=== PATIENT | female | born 1980 ===

== ENCOUNTER 2017-03-01 12:08 | Emergency (ER) | payer OTHER ==
[2017-03-01] MEDS ORDERED: Apap-Butalbital-Caffeine 325-50-40mg Tab PO STA (12:58)
[2017-03-01] MEDS ORDERED: Apap-Butalbital-Caffeine 325-50-40mg Tab ONE (13:11)
--- NOTE | 2017-03-01 13:55 | C.PDOC ---
History Of Present Illness 36 y/o female presents to the ED with complaints of left sided headache x2 days. Pt states she suffers from occasional headaches, and admits currently symptoms feel similar to previous headaches. She denies falls/injuries, fever, visual changes, neck pain, dizziness, nausea, vomiting, extremity weakness, sensory changes. Pt took motrin yesterday without relief. Time Seen by Provider: 03/01/17 12:43 Chief Complaint (Nursing): Headache History Per: Patient History/Exam Limitations: no limitations Onset/Duration Of Symptoms: Days Current Symptoms Are (Timing): Still Present Severity: Moderate Quality: "Pain" Preceeding Symptoms: Known Migraine Symptoms Past Medical History Reviewed: Historical Data, Nursing Documentation, Vital Signs Vital Signs: Last Vital Signs Temp 98 F 03/01/17 14:10 Pulse 64 03/01/17 14:10 Resp 14 03/01/17 14:10 BP 145/94 H 03/01/17 14:10 Pulse Ox 100 03/01/17 14:10 - Medical History PMH: No Chronic Diseases Family History: States: No Known Family Hx - Social History Hx Alcohol Use: Yes Hx Substance Use: No Review Of Systems Except As Marked, All Systems Reviewed And Found Negative. Constitutional: Negative for: Fever, Chills Eyes: Negative for: Vision Change Cardiovascular: Negative for: Chest Pain, Palpitations Respiratory: Negative for: Cough, Shortness of Breath Gastrointestinal: Negative for: Nausea, Vomiting Musculoskeletal: Negative for: Neck Pain Neurological: Positive for: Headache. Negative for: Dizziness Physical Exam - Physical Exam Appears: Well, Non-toxic, In Acute Distress (mild pain) Skin: Warm, Dry, No Rash Head: Atraumatic, Normacephalic Eye(s): bilateral: Normal Inspection, PERRL, EOMI Oral Mucosa: Moist Neck: Normal, Normal ROM, No Midline Cervical Tenderness, No Paracervical Tenderness, No Step Off Deformity, Supple Chest: Symmetrical Cardiovascular: Rhythm Regular Respiratory: Normal Breath Sounds, No Rales, No Rhonchi, No Wheezing Extremity: Bilateral: Atraumatic Neurological/Psych: Oriented x3, Normal Speech, Normal Cognition, Normal Cranial Nerves, No Cerebellar Signs, Normal Motor, Normal Sensation ED Course And Treatment O2 Sat by Pulse Oximetry: 99 (room air) Pulse Ox Interpretation: Normal Progress Note: Patient given PO Fiorecet in ED. Reevaluation Time: 14:15 Reassessment Condition: Improved (Patient reassessed, headache has resolved and she states she feels much better. She was given Rx for Fiorecet, and instructed to follow up with PMD/clinic in 1-2 days. She understands she should return to ED if symptoms return/worsen.) Disposition Counseled Patient/Family Regarding: Studies Performed, Diagnosis, Need For Followup, Rx Given - Disposition Referrals: [facility] [Outside] Disposition: HOME/ ROUTINE Disposition Time: 14:20 Condition: STABLE Additional Instructions: SEGUIMIENTO CON MOORE DOCTOR / CLNICA EN 1-2 FREITAS USE EL MEDICAMENTO QUE SE NECESITA PARA DOLOR DE BEVERLEY DEVUELVA A LA GAURAV DE EMERGENCIA SI LOS SNTOMAS EMPEORARAN Prescriptions: Acetaminophen/Butalbital/Caf [Fioricet] 1 tab PO TID PRN #20 tab PRN Reason: Headache Instructions: Acute Headache (ED) Print Language: KYRGYZ - POA Present On Arrival: None - Clinical Impression Clinical Impression: Headache - Scribe Statement The provider has reviewed the documentation as recorded by the Dmitryibilia Gutierrez Provider Attestation: All medical record entries made by the Scribe were at my direction and personally dictated by me. I have reviewed the chart and agree that the record accurately reflects my personal performance of the history, physical exam, medical decision making, and the department course for this patient. I have also personally directed, reviewed, and agree with the discharge instructions and disposition.
[2017-03-01 14:15] VITALS: BP 145/94; PULSE 64; RESP 14; TEMP 98
[2017-03-05 16:15] VITALS: O2SAT 99
== END 2017-03-01 14:25 | disposition home or self-care (01) ==
LOC: C.ER 12:08
DX: R51 Headache (principal)

== ENCOUNTER 2017-06-13 16:51 | Emergency (ER) | payer OTHER ==
[2017-06-13 16:56] VITALS: RESP 18
[2017-06-13] MEDS ORDERED: Sodium Chloride 0.9% 1,000 ML IV ONE (17:30)
--- NOTE | 2017-06-13 17:37 | C.PDOC ---
History Of Present Illness <Mandi Casas - Last Filed: 06/13/17 19:10> <Kimberlee Bishop - Last Filed: 06/13/17 21:04> 37 year old female with no significant past medical history presents to the ED with complaints of right sided abdominal pain that radiates to the right back for two days with associated nausea. Patient notes she had a fever beginning yesterday and throat pain. She reports decreased appetite today and denies cough , shortness of breath, dysuria, nausea, vomiting, GI bleeding, and chest pain. (Mandi Casas) History Per: Patient, Family History/Exam Limitations: no limitations Onset/Duration Of Symptoms: Days (4 days ) Current Symptoms Are (Timing): Still Present Location Of Pain/Discomfort: RUQ, RLQ Radiation Of Pain To:: Back (right sided ) Quality Of Discomfort: "Pain" Associated Symptoms: Fever, Nausea, Vomiting, Diarrhea, Back Pain. denies: Chills Exacerbating Factors: None Alleviating Factors: None Recent travel outside of the [place]: No Abnormal Vaginal Bleeding: No <Mandi Casas - Last Filed: 06/13/17 19:10> <Kimberlee Bishop - Last Filed: 06/13/17 21:04> Time Seen by Provider: 06/13/17 17:04 Chief Complaint (Nursing): Abdominal Pain Past Medical History Reviewed: Historical Data, Nursing Documentation, Vital Signs Family History: States: Unknown Family Hx - Social History Hx Alcohol Use: No Hx Substance Use: No - Immunization History Hx Tetanus Toxoid Vaccination: No Hx Influenza Vaccination: No Hx Pneumococcal Vaccination: No <Mandi Casas - Last Filed: 06/13/17 19:10> Vital Signs: Last Vital Signs Temp 98.1 F 06/13/17 19:52 Pulse 92 H 06/13/17 19:52 Resp 18 06/13/17 19:52 BP 144/91 H 06/13/17 19:52 Pulse Ox 99 06/13/17 19:52 Review Of Systems Constitutional: Positive for: Fever. Negative for: Chills ENT: Positive for: Throat Pain Cardiovascular: Negative for: Chest Pain Respiratory: Negative for: Cough, Shortness of Breath Gastrointestinal: Positive for: Nausea, Vomiting, Abdominal Pain, Diarrhea Musculoskeletal: Positive for: Back Pain Neurological: Negative for: Weakness, Numbness <Mandi Casas - Last Filed: 06/13/17 19:10> Physical Exam - Physical Exam Appears: Non-toxic, No Acute Distress Skin: Warm, Dry Head: Atraumatic Eye(s): bilateral: Normal Inspection, PERRL, EOMI Ear(s): Bilateral: Normal Oral Mucosa: Moist Throat: Erythema Neck: Supple Lymphatic: Adenopathy (right sided anterior cervical adenopathy ) Chest: Symmetrical, No Deformity Cardiovascular: Rhythm Regular, No Murmur Respiratory: No Rales, No Rhonchi, No Wheezing, Other (clear to auscultation bilaterally ) Gastrointestinal/Abdominal: Soft, Tenderness (positive RUQ tenderness), No Distention, No Guarding, No Rebound, Other (postive Scott's sign ) Back: No CVA Tenderness Extremity: Normal ROM, No Tenderness Neurological/Psych: Oriented x3 <Mandi Casas - Last Filed: 06/13/17 19:10> ED Course And Treatment - Laboratory Results Result Diagrams: 06/13/17 17:54 06/13/17 17:54 O2 Sat by Pulse Oximetry: 98 (RA) Progress Note: Labs, abdomen US, and blood work was ordered. Patient was given Pepcid, Toradol, Zofran, and IV fluids. <Mandi Casas - Last Filed: 06/13/17 19:10> - Laboratory Results Result Diagrams: 06/13/17 17:54 06/13/17 17:54 Pulse Ox Interpretation: Normal Reevaluation Time: 21:04 Reassessment Condition: Improved <Kimberlee Bishop - Last Filed: 06/13/17 21:04> Disposition - Disposition Disposition Time: 19:10 <Mandi Casas - Last Filed: 06/13/17 19:10> Counseled Patient/Family Regarding: Studies Performed, Diagnosis, Need For Followup, Rx Given <Kimberlee Bishop - Last Filed: 06/13/17 21:04> - Disposition Referrals: [facility] [Outside] [facility] [Outside] Disposition: HOME/ ROUTINE Condition: FAIR Prescriptions: Metronidazole [Flagyl] 500 mg PO TID #21 tablet Polyethylene Glycol 3350 [Miralax] 17 gm PO DAILY #270 ml Instructions: Abdominal Pain (ED), Gas and Bloating (ED), Constipation (DC), Ovarian Cyst (ED) Forms: [employer] (Spanish) Print Language: WELSH - Clinical Impression Clinical Impression: Abdominal pain, Constipation, Ovarian cyst - PA / [employer]ERTER / Resident Statement MD/DO has reviewed & agrees with the documentation as recorded. - Scribe Statement The provider has reviewed the documentation as recorded by the Scribe <Mandi Casas - Last Filed: 06/13/17 19:10> <Kimberlee Bishop - Last Filed: 06/13/17 21:04> - Scribe Statement Fabby Mobley All medical record entries made by the Scribe were at my direction and personally dictated by me. I have reviewed the chart and agree that the record accurately reflects my personal performance of the history, physical exam, medical decision making, and the department course for this patient. I have also personally directed, reviewed, and agree with the discharge instructions and disposition. (Mandi Casas) Physician Patient Turnover Patient Signed Over To: Kimberlee Bishop Handoff Comments: Pending US <Mandi Casas - Last Filed: 06/13/17 19:10>
[2017-06-13] MEDS ORDERED: Sodium Chloride 0.9% 1,000 ML ONE (17:45)
[2017-06-13 17:58] LABS: BASO # 0.1 K/uL (0.0-0.2); BASO % 0.5 % (0.0-2.0); EOS # 0.3 K/uL (0.0-0.7); EOS % 1.5 % (0.0-4.0); LYMPH # 1.1 K/uL (1.0-4.3); LYMPH % 6.5 % (20.0-40.0); MEAN CELL VOLUME 89.8 fL (81.0-99.0); MEAN CORPUSCULAR HEMOGLOBIN 30.1 pg (27.0-31.0); MEAN CORPUSCULAR HGB CONC 33.6 g/dL (33.0-37.0); MONO # 1.2 K/uL (0.0-0.8); MONO % 6.9 % (0.0-10.0); NRBC % 0.1 % (0.0-2.0); PLATELET COUNT 241 K/uL (130-400); RED CELL DISTRIBUTION WIDTH 13.6 % (11.5-14.5); WHITE BLOOD COUNT 17.4 K/uL (4.8-10.8)
[2017-06-13 18:08] LABS: URINE BACTERIA RARE (<OCC); URINE BILIRUBIN NEGATIVE (NEGATIVE); URINE BLOOD 1+ (NEGATIVE); URINE COLOR Yellow (YELLOW); URINE GLUCOSE (UA) NORMAL (Normal); URINE KETONE NEGATIVE (NEGATIVE); URINE LEUKOCYTE ESTERASE NEG Leu/uL (Negative); URINE PROTEIN NEGATIVE (NEGATIVE); URINE UROBILINOGEN NORMAL mg/dL (0.2-1.0); WBC URINE 1 /hpf (0-5)
[2017-06-13 18:12] LABS: RBC URINE 4 /hpf (0-3)
[2017-06-13 18:16] LABS: CHLORIDE 99 mmol/L (98-107); SODIUM 135 mmol/L (132-148)
[2017-06-13 18:17] LABS: POTASSIUM 3.5 mmol/L (3.6-5.2)
[2017-06-13 18:19] LABS: ALB/GLOB RATIO 1.2 (1.0-2.1); ALKALINE PHOSPHATASE 83 U/L (38-126); ALT/SGPT 42 U/L (9-52); AST/SGOT 31 U/L (14-36); BILIRUBIN,TOTAL 0.6 mg/dL (0.2-1.3); BLOOD UREA NITROGEN 9 mg/dL (7-17); CARBON DIOXIDE 25 mmol/L (22-30); GFR AFRICAN-AMERICAN > 60; GLUCOSE,RANDOM 90 mg/dL (65-105); TOTAL PROTEIN 7.9 g/dL (6.3-8.3)
[2017-06-13 18:20] LABS: CALCIUM 8.6 mg/dl (8.6-10.4)
--- NOTE | 2017-06-13 19:17 | US ---
EXAM: US Abdomen Limited, Right Upper Quadrant EXAM DATE/TIME: 06/13/2017 5:31 PM CLINICAL HISTORY: 37 years old, female; Pain; Abdominal pain; Generalized; Additional info: Ruq abd pain, nausea TECHNIQUE: Real-time ultrasound of the right upper quadrant with image documentation. COMPARISON: There are no prior studies for comparison. FINDINGS: Liver: There are no focal lesions in the liver. Texture is mildly heterogeneous. There is hepatopedal flow in the main portal vein. Gallbladder: Gallbladder is distended with no stones, sludge or wall thickening. Common bile duct: Common bile duct measures 3 mm in diameter. Pancreas: Pancreas is partially obscured by bowel gas. Right kidney: Right kidney is normal in size.There is no pelvocaliectasis. There may be a small nonobstructing right renal stone Aorta: Visualized portions of the aorta and inferior vena cava are unremarkable. Distal portions are cured by bowel gas. IMPRESSION: No gallstones or ductal dilatation; mild fatty infiltration liver; possible nonobstructing right renal stone Patient was not tender over the gallbladder
[2017-06-13] MEDS ORDERED: Piperacillin/Tazobact 3.375 gm 100 ML IVPB STA (19:18)
[2017-06-13] MEDS ORDERED: Piperacillin/Tazobact 3.375 gm 100 ML IVPB ONE (19:26)
[2017-06-13 19:31] LABS: EOSINOPHIL 4 % (0-4); NEUTROPHIL 80 % (50-75); TOTAL CELLS COUNTED 100
[2017-06-13 19:37] LABS: LARGE PLATELETS PRESENT
[2017-06-13] MEDS ORDERED: Iodixanol 320 MG/ML 100 ML BOTTLE IV ONE (20:00)
--- NOTE | 2017-06-13 20:55 | CT ---
EXAM: CT Abdomen and Pelvis With Intravenous Contrast EXAM DATE/TIME: 06/13/2017 7:19 PM CLINICAL HISTORY: 37 years old, female; Pain; Abdominal pain; Localized; Right lower quadrant (rlq); Additional info: Ruq and rlq abd pain TECHNIQUE: Axial computed tomography images of the abdomen and pelvis with intravenous contrast. All CT scans at this facility use one or more dose reduction techniques, viz.: automated exposure control; ma/kV adjustment per patient size (including targeted exams where dose is matched to indication; i.e. head); or iterative reconstruction technique. Coronal and sagittal reformatted images were created and reviewed. CONTRAST: 100 mL of visipaque 320 administered intravenously. COMPARISON: There are no prior studies for comparison. FINDINGS: Lower thorax: Heart size is normal. There is a small hiatal hernia. Lung bases are clear ABDOMEN: Liver: There is fatty infiltration of the liver. Gallbladder and bile ducts: unremarkable Pancreas: unremarkable Spleen: Spleen is unremarkable. There is a small accessory spleen Adrenals: unremarkable Kidneys and ureters: unremarkable Stomach and bowel: Stomach is almost empty. Rotation is normal. There are mildly distended small bowel loops in the upper abdomen. There is no obstruction. Terminal ileum is unremarkable. Visualized portion of the is unremarkable. There is moderately large amount of stool in the colon. Appendix: See stomach and bowel PELVIS: Bladder: unremarkable Reproductive: Uterus and adnexal structures are unremarkable. ABDOMEN and PELVIS: Intraperitoneal space: There is minimal fluid in the cul-de-sac.There is no free air. Bones/joints: There are no acute osseous abnormalities. There is L5-S1 disc space narrowing osteophyte formation. Soft tissues: There is a tiny fat containing umbilical hernia. Vasculature: unremarkable Lymph nodes: unremarkable IMPRESSION: Fatty liver, no acute solid visceral abnormality; probable constipation, no CT findings of appendicitis; trace fluid in the cul-de-sac, physiologic versus recent cyst rupture Additional findings as described above.
[2017-06-13 21:15] VITALS: BP 146/98; PULSE 97; TEMP 98.3; O2SAT 100
== END 2017-06-13 21:20 | disposition home or self-care (01) ==
LOC: C.ER 16:51
DX: K59.00 Constipation, unspecified (principal); R10.9 Unspecified abdominal pain; N83.209 Unspecified ovarian cyst, unspecified side
CPT/HCPCS: 74177; 76705; 80053; 81001; 83690; 84703; 85025; 96361; 96365; 96375; 99285; J1885; J2405; J2543; J7040; Q9967

== ENCOUNTER 2018-07-14 23:18 | Emergency (ER) | payer SELFPAY ==
[2018-07-14 23:25] VITALS: BMI 23.5
[2018-07-14 23:31] VITALS: TEMP 98.6
--- NOTE | 2018-07-15 00:41 | C.PDOC ---
History Of Present Illness 38 year old female presents to the ED via ambulance for evaluation of an allergic reaction. Patient reports lip swelling after eating dinner with crab. Patient has history of shrimp allergy. She denies prior allergy to crab. Patient was given Benadryl at home and Pepcid, Benadryl, Solu-Medrol in field. Upon ED arrival, patient with improved lip swelling. She denies throat swelling, tongue swelling, cough or difficulty breathing. Time Seen by Provider: 07/15/18 00:26 Chief Complaint (Nursing): Allergic Reaction History Per: Patient, EMS History/Exam Limitations: no limitations Onset/Duration Of Symptoms: Hrs Current Symptoms Are (Timing): Better Possible Cause: Food Home/EMS Treatment: Benadryl Additional History Per: Patient Past Medical History Reviewed: Historical Data, Nursing Documentation, Vital Signs Vital Signs: Last Vital Signs Temp 98.6 F 07/14/18 23:25 Pulse 86 07/14/18 23:25 Resp 18 07/14/18 23:25 BP Pulse Ox 96 07/14/18 23:25 - Medical History PMH: HTN Surgical History: No Surg Hx Family History: States: Unknown Family Hx - Social History Hx Alcohol Use: No Hx Substance Use: No - Immunization History Hx Tetanus Toxoid Vaccination: No Hx Influenza Vaccination: No Hx Pneumococcal Vaccination: No Review Of Systems ENT: Positive for: Other (lip swelling ). Negative for: Throat Swelling Respiratory: Negative for: Cough, Shortness of Breath Physical Exam - Physical Exam Appears: Non-toxic, No Acute Distress Skin: Normal Color, Warm, Dry Head: Atraumatic, Normacephalic Eye(s): bilateral: Normal Inspection Oral Mucosa: Moist Tongue: Normal Appearing, No Swelling Lips: Normal Appearing, No Swelling Throat: Normal, No Erythema, No Exudate, No Drooling, Other (normal voice ) Neck: Supple Chest: Symmetrical, No Deformity, No Tenderness Cardiovascular: Rhythm Regular, No Murmur Respiratory: Normal Breath Sounds, No Rales, No Rhonchi, No Wheezing Extremity: Normal ROM, Capillary Refill (less than 2 seconds ) Neurological/Psych: Oriented x3, Normal Speech, Normal Cognition ED Course And Treatment O2 Sat by Pulse Oximetry: 96 (on RA) Pulse Ox Interpretation: Normal Progress Note: Prednisone PO given. Patient states she is interested in outpatient follow up for her dysfuntional uterine bleeding and questionable hypertension. Medical Decision Making Medical Decision Making: mild lip swelling after eating crabs for dinner h/o shrimp allergy w similar rxn asymptomatic in ED after EMS treatment outpatient f/u for uterine fibroma and ? BP issues Disposition Doctor Will See Patient In The: Office Counseled Patient/Family Regarding: Studies Performed, Diagnosis - Disposition Referrals: [facility] [Outside] [email or web address] [Outside] [facility] [Outside] [facility] [Outside] Disposition: HOME/ ROUTINE Disposition Time: 00:42 Condition: GOOD Additional Instructions: Allergias al cangrejos Aisha EpiPen sunny necessario. Cuidados chronicos sigue con las Clinicas Hipertension: [facility] para hacer janki [facility]roma [facility] para hacer janki Prescriptions: Epinephrine HCl [Epipen Auto-Injector] 0.3 mg MR ONCE #1 ea Instructions: Allergy to Shellfish Forms: [email or web address] (Thai) - Clinical Impression Clinical Impression: Allergic reaction to food - Scribe Statement The provider has reviewed the documentation as recorded by the Scribe (Maryann Villela) Provider Attestation: All medical record entries made by the Scribe were at my direction and personally dictated by me. I have reviewed the chart and agree that the record accurately reflects my personal performance of the history, physical exam, medical decision making, and the department course for this patient. I have also personally directed, reviewed, and agree with the discharge instructions and disposition.
[2018-07-15 01:36] VITALS: BP 140/100; PULSE 87; RESP 20
[2018-07-15 03:23] VITALS: O2SAT 96
== END 2018-07-15 01:00 | disposition home or self-care (01) ==
LOC: C.ER 23:18
DX: T78.1XXA Other adverse food reactions, not elsewhere classified, initial encounter (principal)